=== PATIENT | male | born 1950 | race Caucasian/White ===

== ENCOUNTER 2018-08-30 16:11 | Emergency (ER) | payer OTHER ==
[~2018-08-30] VITALS: Ht 170.2 cm; Wt 83.9 kg
[~2018-08-30 16:11] MED LIST: GLUCOPHAGE1000 MG; GLUCOPHAGE500 MG PO
[2018-08-30] MEDS ORDERED: ASPIRIN81 M2 PO (16:22)
[2018-08-30] MEDS ORDERED: LIPITOR80 MG PO (16:22)
[2018-08-30] MEDS ORDERED: CHLORTHALIDONE25 MG PO (16:25)
[2018-08-30 16:29] LABS: HEMATOCRIT 44.1 % (42.0-52.0); HEMOGLOBIN 15.1 gm/dL (14.0-18.0); MCH 30.2 pg (26.0-34.0); MCHC 34.3 g/dL (28.0-37.0); PLATELET COUNT 245 thou/uL (150-400); RBC 5.01 mil/uL (4.50-6.00); RDW 12.9 % (10.5-14.5); WBC 9.9 thou/uL (4.0-11.0)
[2018-08-30 16:46] LABS: ANION GAP 12 mmol/L (7-16); BUN 14 mg/dL (7-18); CALCIUM 9.6 mg/dL (8.5-10.1); CHLORIDE 87 mmol/L (98-107); CO2 27 mmol/L (21-32); CREATININE 0.9 mg/dL (0.7-1.3); GLUCOSE 182 mg/dL (74-106); SODIUM 126 mmol/L (136-145)
[2018-08-30 16:51] LABS: APTT 30.7 Seconds (24.5-32.8); PROTIME 10.5 Seconds (9.3-11.4)
[2018-08-30 16:57] LABS: ABSOLUTE NEUTROPHILS 6.2 thou/uL (1.4-8.2); ANISOCYTOSIS 1+; DIRECT BILIRUBIN 0.2 mg/dL (<0.1-0.3); MAGNESIUM 1.3 mg/dL (1.8-2.4); SGOT 39 U/L (15-37); SGPT 34 U/L (30-65); TOTAL BILIRUBIN 1.2 mg/dL (<0.1-1.0); TOTAL PROTEIN 7.2 g/dL (6.4-8.2); TROPONIN-I <0.06 ng/mL (<0.06)
[2018-08-30 17:46] LABS: URINE BILIRUBIN NEGATIVE (Negative); URINE BLOOD NEGATIVE (Negative); URINE CLARITY CLEAR; URINE COLOR YELLOW; URINE GLUCOSE-RANDOM* NEGATIVE (Negative); URINE KETONES TRACE (Negative); URINE LEUKOCYTES-REFLEX NEGATIVE (Negative); URINE NITRITE-REFLEX NEGATIVE (Negative); URINE PROTEIN (DIPSTICK) NEGATIVE (Negative); URINE SPECIFIC GRAVITY <= 1.005 (1.005-1.035); URINE UROBILINOGEN 0.2 E.U./dl (0.2-1.0)
[2018-08-30 19:09] VITALS: BP 149/73
--- NOTE | 2018-08-31 01:03 | EKG ---
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1950 Requested By: Camilo Be Order Number: [id number] MD: Rosalio Mckeon Measurements Intervals [place] Rate: 101 P: 54 DE: 145 QRS: 33 QRSD: 107 T: 57 QT: 336 QTc: 436 Interpretive Statements Sinus tachycardia left atrial enlargement No previous ECG available for comparison Electronically Signed On 08-31-2018 1:03:03 CDT by Rosalio Mckeon [email or web address] ��������������������������������������������� <ELECTRONICALLY SIGNED> ���������������������������������������� By: Rosalio Mckeon MD ��������������������������������������������� 08/31/18 0103 1641 1641 Rosalio Mckeon MD /EPI
== END 2018-08-30 19:17 | disposition short-term general hospital (02) ==
LOC: ER 16:11
PROVIDERS: Emergency Medicine
DX: S06.5X0A Traumatic subdural hemorrhage without loss of consciousness, initial encounter (principal); I10 Essential (primary) hypertension; E11.9 Type 2 diabetes mellitus without complications; Z87.440 Personal history of urinary (tract) infections; Z91.011 Allergy to milk products; W00.0XXA Fall on same level due to ice and snow, initial encounter; Y93.89 Activity, other specified; Y92.89 Other specified places as the place of occurrence of the external cause; Y99.8 Other external cause status